=== PATIENT | male | born 1990 | race Caucasian/White ===

== ENCOUNTER 2022-09-09 15:50 | Inpatient (IN) | payer MEDICAID, SELFPAY ==
[2022-09-09 15:51] VITALS: BP 155/99; PULSE 99; RESP 16; TEMP 36.8; O2SAT 96; BMI 21.4
--- NOTE | 2022-09-09 16:48 | EDS_ITS ---
HPI History of Present Illness Chief Complaint: Substance Abuse Informant: patient and spouse/S.O. Narrative Narrative: This patient presents for alcohol detox. He went to an inpatient treatment facility in [place] but they referred him for detox because they do the alcohol treatment but not detox portion. He states he drinks 10-30 some beers a day. When he gets up in the morning he has some nausea occasional vomiting until he gets a few beers in him. He gets shakes if he does not drink. He has had seizures. He was admitted to a different hospital for about 5 days for what ended up being an alcohol withdrawal seizure in November of this year. He was on seizure meds and withdrawal meds for about a month but does not recall what they were. He thinks he might of had a withdrawal seizure about 2 weeks ago. He nothing specific happened to cause him to want detox other than this event and just feeling like he needs to be off the alcohol. He has never actually gone through a detox program before. He last drank about 3 hours ago. He does not f eel as though he is in withdrawal. He does not feel ill. Only medication is proton pump inhibitor. [facility] Medical History Alcohol withdrawal seizure Alcoholism GERD (gastroesophageal reflux disease) Home Medications omeprazole 20 mg capsule,delayed release 20 mg PO DAILY gerd 09/09/22 [History Last Taken 09/09/22] Allergy/AdvReac Type Severity Reaction Status Date / Time amoxicillin Allergy Hives Verified 09/09/22 15:51 Family History (Updated 09/09/22 @ 17:[address] Mart Willis DO) Other Alcoholism Social History (Updated 09/09/22 @ 17:[address] Mart Willis DO) Smoking Status: Never smoker alcohol intake: current substance use type: marijuana ROS ROS ED Constitutional Constitutional ED: Reports sweats; Denies chills or fever(s) Eyes Eyes: Denies change in vision ENT ENT ED: Denies rhinorrhea Cardiovascular Cardiovascular: Denies chest pain or palpitations Respiratory/Chest Respiratory/Chest: Denies cough or dyspnea Gastrointestinal Gastrointestinal: Reports nausea, vomiting and other Details: Nausea vomiting in the mornings. He is not nauseated now. ; Denies abdominal pain Genitourinary Genitourinary ED: Denies dysuria Musculoskeletal Musculoskeletal: Denies myalgias Integumentary Denies rash Neurologic Neurologic: Denies headache(s) Psychiatric Psychiatric: Denies suicidal ideation Endocrine Endocrinology: Denies polydipsia or polyuria Hematologic/Lymphatic Hematologic/Lymphatic: Denies easy bleeding or easy bruising Allergic/Immunologic Allergic/Immunologic ED: Denies urticaria EXAM Physical Exam Const Vital Signs: 09/09/22 15:51 09/09/22 17:28 Temperature 98.2 F 98.3 F Temperature Source Temporal Oral Pulse Rate 99 84 Respiratory Rate 16 16 Blood Pressure 155/99 H 138/78 H Blood Pressure Mean 117 98 Pulse Ox 96 96 Oxygen Delivery Method Room Air Room Air Positive well nourished and well developed General Appearance ED: well developed HEENT Reports moist mucous membranes Eyes Eyes Narrative: Mildly injected conjunctiva. Neck no JVD Chest Wall inspection of chest normal Resp normal respiratory effort and clear to auscultation bilaterally Cardio regular rate and no murmurs Rate: Negative for tachycardic GI normal to inspection, nondistended, normoactive bowel sounds and non-tender Palpation: soft Back/Spine no CVA tenderness Extremity normal to inspection Neuro oriented x3 Psych Psych Narrative: Patient is calm. Does not seem internally stimulated. No flight of ideas or paranoia. Skin Skin Narrative: No piloerection. MDM MDM MDM Narrative Medical decision making narrative: I discussed case with the hospitalist. Patient will be admitted for detox. He will do blood work-up on the floor. He was given Zofran for some mild nausea that developed. Lab Data Labs: Laboratory Results - last 24 hr 09/09/22 09/09/22 09/09/22 17:05 17:05 17:05 WBC 4.7 RBC 4.63 Hgb 14.6 Hct 44.1 MCV 95.2 H MCH 31.5 MCHC 33.1 RDW Std Deviation 44.8 H RDW Coeff of Nael 12.6 Plt Count 178 MPV 9.4 Immature Gran % (Auto) 0.200 Neut % (Auto) 64.1 Lymph % (Auto) 21.3 [place] % (Auto) 12.3 H Eos % (Auto) 1.5 Baso % (Auto) 0.6 Absolute Neuts (auto) 3.0 Absolute Lymphs (auto) 0.99 Nucleated RBC % 0 Sodium 137 Potassium 3.7 Chloride 100 Carbon Dioxide 23.0 Anion Gap 14 BUN 7 Creatinine 0.70 Estim Creat Clear Calc 134.57 Est GFR (MDRD) Af Amer 166 Est GFR (MDRD) Non-Af 137 BUN/Creatinine Ratio 9.9 L Glucose 89 Calcium 9.6 Total Bilirubin 0.60 AST 361 H ALT 319 H Alkaline Phosphatase 118 H Total Protein 8.6 H Albumin 4.5 Globulin 4.1 Albumin/Globulin Ratio 1.1 Ethyl Alcohol 111.0 Discharge Plan Triage Chief Complaint: Substance Abuse ED Provider: Viraj Garza Dx/Rx/DC Orders Clinical Impression: Alcohol abuse, Desire for detoxification Primary Care Provider: Care Physician,No Primary Disposition Disposition: Acute Care Hospital [facility]
[2022-09-09] MEDS: Ondansetron ODT 4 MG Tablet PO (17:20)
[2022-09-09 17:28] VITALS: BP 138/78; PULSE 84; RESP 16; TEMP 36.8; O2SAT 96
--- NOTE | 2022-09-09 17:43 | PCM.HP.STD ---
HPI - General General Date of Admission: 09/09/22 Chief Complaint: alcohol withdrawal HPI Narrative VIJAY HILLMAN, is a 31 M who presents seeking treatment for alcohol withdrawal. Patient's last drink was at 1330 today. Since then, he has been having tremors and chills. Patient drinks anywhere from a half to a full case of beer per day patient went to a outpatient addiction treatment program in [place] but given his acute alcohol withdrawal they advised him to come to the hospital to get acute alcohol withdrawal treatment. Patient went through acute alcohol withdrawal and what sounds like delirium tremens back in November. Patient also had what sounds like alcohol withdrawal seizures. Patient tried cutting back his alcohol couple weeks ago and then went to bed and when he woke, he was incontinent of urine. He had also bitten his tongue at that time so he suspects that he had had a seizure. Patient maikol other, who is present in room, was not there at that time to see if that. Patient has never had seizures other than those 2 other events. [facility] Medical History (Updated 09/09/22 @ 17:[address] Mart Willis DO) Alcohol withdrawal seizure Alcoholism GERD (gastroesophageal reflux disease) Home Medications omeprazole 20 mg capsule,delayed release 20 mg PO DAILY gerd 09/09/22 [History Last Taken 09/09/22] Allergy/AdvReac Type Severity Reaction Status Date / Time amoxicillin Allergy Hives Verified 09/09/22 15:51 Family History (Updated 09/09/22 @ 17:[address] Mart Willis DO) Other Alcoholism Social History (Updated 09/09/22 @ 17:[address] Mart Willis DO) Smoking Status: Never smoker alcohol intake: current substance use type: marijuana ROS ROS Narrative All review of systems were negative except as mentioned above in the history of present illness and the other review of systems. Vital Signs Vital Signs Vital Signs: 09/09/22 15:51 09/09/22 17:28 Temperature 36.8 C 36.8 C Temperature Source Temporal Oral Pulse Rate 99 84 Respiratory Rate 16 16 Blood Pressure 155/99 H 138/78 H Blood Pressure Mean 117 98 Pulse Ox 96 96 Oxygen Delivery Method Room Air Room Air Weight Weight: 65.7 kg Body Mass Index (BMI) 21.4 Physical Exam Const alert HEENT normocephalic and head/scalp atraumatic Eyes Eyes Narrative: No icterus Resp normal respiratory effort, no retractions and no use of accessory muscles Cardio regular rate, regular rhythm, S1 normal heart sound and S2 normal heart sound GI normal to inspection, nondistended, normoactive bowel sounds, soft to palpation, non-tender and non-distended; Negative for hepatosplenomegaly Extremity normal to inspection and full ROM Neuro Neuro Narrative: Tremulous Psych Mood & Affect: anxious Assessment & Plan Assessment/Plan (1) Alcohol withdrawal: PLAN: Patient is clearly going through alcohol withdrawal. We will follow-up labs as well as an alcohol level. Patient's last drink was at 1330 on September 09. Patient is a high risk for delirium tremens as it sounds like he has experienced that when he was hospitalized in November. Additionally during that hospitalization, patient underwent an alcohol withdrawal seizure and he had another alcohol withdrawal seizure, from what it sounds like, about a couple weeks ago when he tried cutting back on his alcohol consumption. Will initiate a phenobarbital taper as well as other medication to help with other somatic complaints with his withdrawal during his hospitalization. I did discuss with the patient as well as his segment other that if he worsens that he may require additional therapies and potential transfer to the intensive care unit. Currently, he is hemodynamically stable. Addiction medicine to facilitate outpatient follow-up. Patient had been seen in a facility in [place], will defer to addiction medicine and the patient if he is to follow-up with that facility when he is medically stable for discharge. PLAN: Plan GERD: Continue with his PPI therapy VTE prophylaxis: Not indicated. Though the patient does require intensive care unit, would recommend chemical prophylaxis. Charges/Coding Visit Charges Inpatient E&M: 39724 Init Hosp L2
[2022-09-09 17:58] VITALS: BMI 20.4
[2022-09-09 18:00] VITALS: BP 126/84; PULSE 85; RESP 16; TEMP 36.9; O2SAT 98
[2022-09-09 18:14] LABS: Absolute Lymphocyte Count 0.99 X10^3/uL (0.83-4.51); Basophil# 0.03 X10^3/uL; Basophil% 0.6 % (0-1); Eosinophil# 0.07 X10^3/uL; Eosinophils% 1.5 % (0-5); Hematocrit 44.1 % (40-54); Hemoglobin 14.6 g/dL (13.0-16.5); Lymphocyte # 0.99 X10^3/ul (0.83-4.51); Lymphocyte % 21.3 % (19-41); Mean Corp Hgb Conc 33.1 g/dL (32-36); Mean Corpuscular Hgb 31.5 pg (27.0-32.0); Mean Corpuscular Volume 95.2 fL (80-94); Mean Platelet Vol. 9.4 fl (6.2-12.0); Monocyte# 0.57 X10^3/uL; Monocyte% 12.3 % (0-10); NRBC Flagged by Analyzer 0 % (0-5); Neutrophil # 2.98 X10^3/uL (2.7-7.7); Neutrophil % 64.1 % (47-70); Platelet Count 178 K/mm3 (150-450); RBC Distribution Width CV 12.6 % (11.6-14.6); RBC Distribution Width SD 44.8 fl (35.1-43.9); Red Blood Count 4.63 M/mm3 (4.6-6.2); White Blood Count 4.7 K/mm3 (4.4-11.0)
[2022-09-09 18:28] LABS: ALB/GLOB Ratio 1.1 RATIO (0.9-2.4); AST(SGOT) 361 U/L (15-37); Alanine Aminotransfer ALT/SGPT 319 U/L (16-61); Albumin, Serum 4.5 g/dL (3.2-5.0); Alkaline Phosphatase 118 U/L (45-117); Anion Gap 14 (5-15); BUN 7 mg/dL (7-18); BUN/Creat Ratio 9.9 RATIO (10-20); Calcium,Total 9.6 mg/dL (8.5-10.1); Chloride 100 mmol/L (98-107); EST Glomerular Filtration Rate 137 mL/min (>60); Est Glom Filt Rate - Afr Amer 166 mL/min (>60); Estimated Creatinine Clearance 134.57 ml/min; Globulin 4.1 g/dL (2.2-4.2); Glucose 89 mg/dL (74-106); Potassium 3.7 mmol/L (3.5-5.1); Protein, Total 8.6 g/dL (6.4-8.2); Sodium Level 137 mmol/L (136-145)
[2022-09-09] MEDS: Ibuprofen 600 MG Tablet PO (18:28)
[2022-09-09] MEDS: Gabapentin 300 MG Capsule PO (18:28)
[2022-09-09] MEDS: Phenobarbital 32.4 MG Tablet 64.8 MG PO ×2 (18:28→21:37)
--- NOTE | 2022-09-09 20:52 | CM.ED ---
Social Work Consult: Substance Abuse. Referral source: Telephone call to treatment navigatorRosie. Rosie updated on patient admission to [facility]. This social services counselor unable to meet with patient in room prior to patient admission to acute unit. Tristan APTEL, SHANNON-S
[2022-09-09] MEDS: Dicyclomine 10 MG Capsule 20 MG PO (21:37)
[2022-09-09] MEDS: traZODone 100 MG Tablet PO (21:37)
[2022-09-09] MEDS: hydrOXYzine PAM 25 MG Capsule 50 MG PO (21:37)
[2022-09-09 21:42] VITALS: BP 145/78; PULSE 71; RESP 16; TEMP 37.1; O2SAT 98
[2022-09-10] VITALS (7 sets, daily range): BP systolic 125–151; BP diastolic 90–115; PULSE 63–89; RESP 16; TEMP 36.3–36.6; O2SAT 96–100
[2022-09-10] MEDS: hydrOXYzine PAM 25 MG Capsule 50 MG PO ×3 (01:57→14:42)
[2022-09-10] MEDS: Phenobarbital 32.4 MG Tablet 64.8 MG PO ×6 (01:57→22:07)
[2022-09-10] MEDS: 0.9% Saline Lock 10 ML Syringe IV ×2 (05:55→14:42)
[2022-09-10] MEDS: Thiamine Hydrochloride 100 MG Tablet PO (09:47)
[2022-09-10] MEDS: Folic Acid 1 MG Tablet PO (09:47)
[2022-09-10] MEDS: Pantoprazole Sodium 20 MG Tablet PO (09:47)
[2022-09-10] MEDS: Dicyclomine 10 MG Capsule 20 MG PO (09:48)
--- NOTE | 2022-09-10 11:28 | ADDICTION ---
This account underwriter met with PT to conduct ASAM, MSE, AUDIT, DUDIT assessments and to plan for d/c. PT A+Ox4 and participated actively. All assessments completed and placed in PT's chart. PT plans to f/u with [facility] for follow-up treatment services. PT did not indicate a need for transportation post d/c from [facility].
--- NOTE | 2022-09-10 18:31 | NURSING ---
Charting reviewed with Angelica Sena RN
--- NOTE | 2022-09-10 18:56 | PCM.PN.HOSP ---
Subjective Subjective Patient was seen and examined today, he does not complain of any anxiety symptoms or nervousness at this time, he states he wants to do outpatient follow-up for alcohol detox when he is released from the hospital. Objective Data Objective Data Vital Signs: Vital Signs Temp Pulse Resp BP Pulse Ox O2 Del Method 97.7 F L 75 16 144/92 H 100 Room Air 09/10/22 16:50 09/10/22 16:50 09/10/22 16:50 09/10/22 16:50 09/10/22 16:50 09/10/22 16:50 Oxygen Delivery Method Room Air Weight: 62.8 kg Body Mass Index (BMI) 20.4 Intake & Output: Intake and Output for Last 24 Hours 09/08/22 09/09/22 09/10/22 23:59 23:59 23:59 Intake Total 480 / 480 Balance 480 / 480 Lab / Micro Data Result Diagrams: 09/09/22 17:05 09/09/22 17:05 Labs: Laboratory Results - last 24 hr 09/09/22 17:05: Ethyl Alcohol 111.0 Physical Exam Const alert, oriented x3, no apparent distress and healthy appearing General Appearance: cooperative, well kempt and well developed Orientation / Consciousness: awake, oriented to person, oriented to place and oriented to time HEENT normocephalic and moist oral mucous membranes Eyes PERRL, EOMs intact bilaterally and conjunctivae normal Neck supple, no JVD, thyroid normal and no carotid bruits General: trachea midline Resp normal respiratory effort and clear to auscultation bilaterally Auscultation: Negative for rales, rhonchi or wheezes Cardio regular rate, regular rhythm, no murmurs, no rub and no gallops GI normal to inspection, nondistended, normoactive bowel sounds, soft to palpation, non-tender and non-distended Extremity no clubbing, cyanosis or edema Skin no rashes or lesions noted General Skin Exam: no breakdown Neuro oriented x3, CN's II-XII intact bilaterally, no focal motor deficits and no sensory deficits noted Sensorium / Orientation: awake and alert Speech: speech normal Psych affect normal Assessment & Plan Assessment/Plan (1) Alcohol withdrawal: PLAN: Plan 1. Acute alcohol withdrawal-patient appears minimally symptomatic at this time, continue present medications #2 chronic alcoholism-complicates care, management, recovery, and prognosis #3 GERD-patient is on a PPI Charges/Coding Visit Charges Inpatient E&M: 35495 Subs Hosp L2
[2022-09-10] MEDS: Acetaminophen 500 MG Tablet PO (22:07)
[2022-09-10] MEDS: traZODone 100 MG Tablet PO (22:08)
[2022-09-11 02:00] VITALS: BP 120/83; PULSE 69; RESP 16; TEMP 36.6; O2SAT 99
[2022-09-11] MEDS: Phenobarbital 32.4 MG Tablet 64.8 MG PO ×3 (02:15→09:15)
[2022-09-11] MEDS: Gabapentin 300 MG Capsule PO (05:11)
[2022-09-11 07:00] VITALS: BP 103/90; PULSE 65; RESP 16; TEMP 36.7; O2SAT 98
[2022-09-11 09:08] VITALS: BP 133/89; PULSE 74; RESP 16; TEMP 35.9; O2SAT 98
[2022-09-11] MEDS: Folic Acid 1 MG Tablet PO (09:14)
[2022-09-11] MEDS: Thiamine Hydrochloride 100 MG Tablet PO (09:14)
[2022-09-11] MEDS: Pantoprazole Sodium 20 MG Tablet PO (09:14)
--- NOTE | 2022-09-11 12:05 | CASEMGMT ---
Per admission questions patient does not have a Healthcare Power of Vessel [place] or Healthcare Living will and he is not interested in information. Prisca Rojas INJECTION OPERATOR [place]
--- NOTE | 2022-09-11 12:12 | PCM.PN.HOSP ---
Subjective Subjective Seen and examined today, he does not appear to be anxious or tremorous. I talked to the patient about decreasing his phenobarbital dosage, I also talked with him about possibly discharging him tomorrow if he remained asymptomatic or minimally symptomatic. I have elected to provide him with some phenobarbital he follows up with 180 as an outpatient. Objective Data Objective Data Vital Signs: Vital Signs Temp Pulse Resp BP Pulse Ox O2 Del Method 96.6 F L 74 16 133/89 H 98 Room Air 09/11/22 09:08 09/11/22 09:08 09/11/22 09:08 09/11/22 09:08 09/11/22 09:08 09/11/22 10:00 Oxygen Delivery Method Room Air Weight: 62.8 kg Body Mass Index (BMI) 20.4 Intake & Output: Intake and Output for Last 24 Hours 09/09/22 09/10/22 09/11/22 23:59 23:59 23:59 Intake Total 955 / 955 Balance 955 / 955 Lab / Micro Data Result Diagrams: 09/09/22 17:05 09/09/22 17:05 Physical Exam Const alert, oriented x3, no apparent distress and healthy appearing General Appearance: cooperative, well kempt and well developed Orientation / Consciousness: awake, oriented to person, oriented to place and oriented to time HEENT normocephalic and moist oral mucous membranes Eyes PERRL, EOMs intact bilaterally and conjunctivae normal Neck supple, no JVD, thyroid normal and no carotid bruits General: trachea midline Resp normal respiratory effort and clear to auscultation bilaterally Auscultation: Negative for rales, rhonchi or wheezes Cardio regular rate, regular rhythm, no murmurs, no rub and no gallops GI normal to inspection, nondistended, normoactive bowel sounds, soft to palpation, non-tender and non-distended Extremity no clubbing, cyanosis or edema Skin no rashes or lesions noted General Skin Exam: no breakdown Neuro oriented x3, CN's II-XII intact bilaterally, no focal motor deficits and no sensory deficits noted Sensorium / Orientation: awake and alert Speech: speech normal Psych affect normal Assessment & Plan Assessment/Plan (1) Alcohol withdrawal: PLAN: Plan 1. Acute alcohol withdrawal-patient appears minimally symptomatic at this time, I have elected to reduce the patient's phenobarbital at this time, he will be watched for signs of withdrawal. #2 chronic alcoholism-complicates care, management, recovery, and prognosis #3 GERD-patient is on a PPI Charges/Coding Visit Charges Inpatient E&M: 69793 Subs Hosp L2
[2022-09-11 13:14] VITALS: BP 119/78; PULSE 80; RESP 16; TEMP 36; O2SAT 98
[2022-09-11 18:00] VITALS: BP 131/90; PULSE 70; RESP 16; TEMP 36.4; O2SAT 100
--- NOTE | 2022-09-11 18:34 | NURSING ---
Charting reviewed with Angelica Sena RN
[2022-09-11 20:58] VITALS: BP 125/81; PULSE 74; RESP 16; TEMP 36.4; O2SAT 99
[2022-09-12] MEDS: Gabapentin 300 MG Capsule PO (01:52)
[2022-09-12 02:51] VITALS: BP 139/105; PULSE 71; RESP 16; TEMP 36.7; O2SAT 100
[2022-09-12 08:45] VITALS: BP 134/91; PULSE 61; RESP 18; TEMP 36.6; O2SAT 100
[2022-09-12] MEDS: Thiamine Hydrochloride 100 MG Tablet PO (08:49)
[2022-09-12] MEDS: Folic Acid 1 MG Tablet PO (08:49)
[2022-09-12] MEDS: Pantoprazole Sodium 20 MG Tablet PO (08:49)
--- NOTE | 2022-09-12 10:05 | DCINST_ITS ---
Discharge Instructions Diet Discharge Diet: No restrictions Activity Discharge Activity: Return to Normal Activity Weight Bearing Status: Full weight bearing Follow Up Care Test Results: Test results from this visit will be discussed in further detail at your follow- up appointment, if applicable. Discharge Plan Admission Admit Date/Time: 09/09/22 17:41 Primary Reason for Your Visit: alcohol detox Attending Provider: Carlton Paz Primary Care Provider: Care Physician,No Primary Consulting Providers: Mart Wilils Discharge Orders/Prescriptions Prescriptions: No Action omeprazole 20 mg Capsule,Delayed Release(Dr/Ec) 20 mg PO DAILY Referrals / Follow Up: Care Physician,No Primary [Primary Care Provider] - Disposition Disposition (needs filled in before D/C Order can be placed): Home, Self Care
--- NOTE | 2022-09-12 11:53 | PCM.DC.SUM ---
Providers Date of Admission: 09/09/22 Date of Discharge: 09/12/22 Primary Care Physician: No Primary Care Phys Reason For Visit: ALCOHOL DETOX Diagnosis Discharge Diagnosis (1) Alcohol withdrawal: Status: Acute Code(s): F10.939 - Alcohol use, unspecified with withdrawal, unspecified Plan 1. Acute alcohol withdrawal-patient appears minimally symptomatic at this time, I have elected to reduce the patient's phenobarbital at this time, he will be watched for signs of withdrawal. #2 chronic alcoholism-complicates care, management, recovery, and prognosis #3 GERD-patient is on a PPI Medications at Discharge Home Medications omeprazole 20 mg capsule,delayed release 20 mg PO DAILY gerd 09/09/22 Hospital Course Operations None Procedures None Summary of Care Provided Minutes Spent on Discharge: 31 Hospital Course: 1-year-old white male was seen in the emergency room at [facility] requesting services for alcohol detox. Patient had a past history of alcohol withdrawal in the past resulting in seizures, he stated that 2 weeks prior he tried cutting back on his alcohol intake and woke after sleeping and was incontinent of urine and he also found he had bitten his tongue. At that time he felt that he probably did have a seizure also. Blood alcohol level in the emergency room was 111, patient's liver enzymes were elevated. Bilirubin was normal. Patient was admitted to PCU and orders were entered using the alcohol detox order set. During the patient's hospital stay, he had no evidence of seizures or DTs, he was seen by addiction social director and declined inpatient detox program at the time of discharge from the hospital, arrangements were made for him to follow-up at an outpatient detox program after he was discharged from [facility]. On 09/12/2022, patient was seen and examined: On examination he appeared in good health and spirits. Vital signs as documented. Skin warm and dry and without overt rashes. Neck without JVD, neck was supple, trachea midline, thyroid was normal. Lungs clear bilaterally, normal air movement was noted. Heart exam notable for regular rhythm, normal sounds and absence of murmurs, rubs or gallops. Abdomen unremarkable and without evidence of organomegaly, masses, or abdominal aortic enlargement. Bowel sounds are present, abdomen is not distended. Extremities nonedematous, no cyanosis was noted, no clubbing was noted. Neuro: Cranial nerves II through XII are grossly intact, no focal motor deficits were noted, sensation to light touch and pinprick intact, motor exam 5/5 throughout. Psych: Patient is alert and oriented x3, he does not appear anxious or depressed, he does not appear agitated. Patient was discharged in stable condition on 09/12/2022. Weight / BMI Weight Weight: 62.8 kg Body Mass Index (BMI) 20.4 ABG / Lab / Microbiology Data Result Diagrams: 09/09/22 17:05 09/09/22 17:05 D/C Instructions Discharge Diet: No restrictions Weight Bearing Status: Full weight bearing Meaningful Use Info Meaningful Use Diagnoses (Choose all that apply): None applicable Discharge Plan Admission Admit Date/Time: 09/09/22 17:41 Primary Reason for Your Visit: alcohol detox Attending Provider: Carlton Paz Primary Care Provider: Care Physician,No Primary Consulting Providers: Mart Willsi Discharge Orders/Prescriptions Prescriptions: No Action omeprazole 20 mg Capsule,Delayed Release(Dr/Ec) 20 mg PO DAILY Referrals / Follow Up: Care Physician,No Primary [Primary Care Provider] - Disposition Disposition (needs filled in before D/C Order can be placed): Home, Self Care Charges/Coding Visit Charges Inpatient E&M: 18055 Disch Hosp
== END 2022-09-12 10:23 | disposition home or self-care (01) | DRG 775 ==
LOC: ED 16:45 → PCU 17:39
PROVIDERS: Emergency Provider Emergency Medicine; Visit Provider Internal Medicine
DX: F10.239 Alcohol dependence with withdrawal, unspecified (principal); F12.90 Cannabis use, unspecified, uncomplicated; F19.230 Other psychoactive substance dependence with withdrawal, uncomplicated; K21.9 Gastro-esophageal reflux disease without esophagitis; Y90.5 Blood alcohol level of 100-119 mg/100 ml
CPT/HCPCS: 80053; 82077; 85025; 99284; A4216